=== PATIENT | female | born 1965 | race African-American/Black ===

== ENCOUNTER 2017-02-23 20:39 | Emergency (ER) | payer MEDICARE ==
[2013-07-07 14:52] VITALS: BMI 26.3
[~2017-02-23 20:39] MED LIST: FLAGYL500 MG OR; LISINOPRIL5 MG OR; NICODERM C1 PATCH .3 TP; PRILOSEC10 MG OR
[2017-02-23 21:03] LABS: BASOPHILS 0.4 % (0-2); EOSINOPHILS 3.1 % (0-7); HEMATOCRIT 36.3 % (36.0-48.0); IMMATURE GRANULOCYTES 0.6 % (0-5); LYMPHOCYTES 31.6 % (15-50); MCHC 33.1 g/dL (31.0-37.0); MCV 81.8 fL (80.0-100.0); MEAN PLATELET VOLUME 9.7 fL (7.4-10.4); MONOCYTES 8.4 % (2-11); NEUTROPHILS 55.9 % (40-80); PLATELET COUNT 297 10x3/uL (130-400); RBC 4.44 10x6/uL (4.00-5.40); RDW 16.4 % (11.5-14.5); WBC 6.8 10x3/uL (4.8-10.8)
[2017-02-23 21:27] LABS: ALBUMIN 3.9 g/dL (3.4-5.0); ALKALINE PHOSPHATASE 76 U/L (46-116); ALT (SGPT) 32 U/L (10-68); BILIRUBIN - TOTAL 0.23 mg/dL (0.2-1.3); CALC OSMOLALITY 269 mosm/kg (275-300); CALCIUM 8.9 mg/dL (8.5-10.1); CARBON DIOXIDE 21.1 mmol/L (21.0-32.0); CHLORIDE - SERUM 101 mmol/L (98-107); CREATININE - SERUM 0.7 mg/dL (0.6-1.3); GLUCOSE 90 mg/dL (74-106); POTASSIUM - SERUM 4.1 mmol/L (3.5-5.1); PROTEIN - SERUM 8.8 g/dL (6.4-8.2); SODIUM 136 mmol/L (136-145); UREA NITROGEN 7 mg/dL (7-18); eGFR NON AFRICAN AMERICAN > 90 mL/min (90-120)
[2017-02-23 21:38] LABS: CREATINE KINASE 89 UL (21-215)
[2017-02-23 21:40] LABS: TROPONIN-I < 0.017 ng/mL (0.000-0.060)
[2017-02-23 22:22] LABS: APPEARANCE CLEAR (CLEAR); BILIRUBIN NEGATIVE (NEGATIVE); COLOR STRAW (YELLOW); GLUCOSE NEGATIVE (NEGATIVE); KETONE NEGATIVE (NEGATIVE); LEUKOCYTE ESTERASE NEGATIVE (NEGATIVE); NITRITE NEGATIVE (NEGATIVE); PROTEIN TRACE mg/dL (NEGATIVE); SPECIFIC GRAVITY 1.005 (1.005-1.020); UROBILINOGEN NORMAL (NORMAL)
== END 2017-02-23 22:40 | disposition home or self-care (01) ==
LOC: D.ER 20:39
PROVIDERS: Emergency Medicine; Physician Assistant Medical
DX: R07.9 Chest pain, unspecified (principal); R11.2 Nausea with vomiting, unspecified; F10.129 Alcohol abuse with intoxication, unspecified

== ENCOUNTER 2017-09-23 15:28 | Emergency (ER) | payer MEDICARE ==
[2013-07-07 14:52] VITALS: BMI 26.3
[2017-09-23 17:34] LABS: BASOPHILS 0.4 % (0-2); HEMATOCRIT 31.7 % (36.0-48.0); HEMOGLOBIN 10.4 g/dL (12-16); IMMATURE GRANULOCYTES 0.7 % (0-5); MCH 26.8 pg (26.0-34.0); MCHC 32.8 g/dL (31.0-37.0); MCV 81.7 fL (80.0-100.0); MEAN PLATELET VOLUME 9.7 fL (7.4-10.4); MONOCYTES 10.6 % (2-11); NEUTROPHILS 58.3 % (40-80); PLATELET COUNT 266 10x3/uL (130-400); RBC 3.88 10x6/uL (4.00-5.40); RDW 15.8 % (11.5-14.5); WBC 4.5 10x3/uL (4.8-10.8)
[2017-09-23 17:41] LABS: CALC OSMOLALITY 272 mosm/kg (275-300); CALCIUM 8.7 mg/dL (8.5-10.1); CARBON DIOXIDE 26.7 mmol/L (21.0-32.0); CHLORIDE - SERUM 102 mmol/L (98-107); CREATININE - SERUM 0.8 mg/dL (0.6-1.3); GLUCOSE 94 mg/dL (74-106); POTASSIUM - SERUM 3.9 mmol/L (3.5-5.1); SODIUM 137 mmol/L (136-145); UREA NITROGEN 10 mg/dL (7-18); eGFR NON AFRICAN AMERICAN 80 mL/min (90-120)
[2017-09-23 19:45] LABS: AMYLASE - SERUM 85 U/L (25-115); LIPASE 93 U/L (73-393)
== END 2017-09-23 20:43 | disposition home or self-care (01) ==
LOC: D.ER 15:28
PROVIDERS: Family Medicine
DX: F41.9 Anxiety disorder, unspecified (principal); R10.9 Unspecified abdominal pain; I10 Essential (primary) hypertension; Z86.73 Personal history of transient ischemic attack (TIA), and cerebral infarction without residual deficits